=== PATIENT | male | born 1960 | race Caucasian/White ===

== ENCOUNTER 2018-12-11 13:22 | Emergency (ER) | payer OTHER, BC ==
[~2018-12-11] VITALS: Ht 177.8 cm; Wt 113.6 kg
[2018-12-11] MEDS ORDERED: ATOR1TAB21 (13:30)
[2018-12-11] MEDS ORDERED: D 101000 PO (13:30)
[2018-12-11] MEDS ORDERED: WARF-23 (13:30)
[2018-12-11] MEDS ORDERED: LISI-538 (13:30)
[2018-12-11 14:16] LABS: BASO % 0.3 % (0.0-1.0); EOS # 0.1 10^3/uL (0.0-0.50); HEMATOCRIT 40.9 % (42.0-52.0); HEMOGLOBIN 13.9 g/dl (13.5-17.5); LYMPH # 1.4 10^3/uL (1.5-4.5); MEAN CORPUSCULAR HEMOGLOBIN 32.1 pg (27.0-33.0); MEAN CORPUSCULAR VOLUME 94.5 fl (80.0-96.0); MONO # 0.6 10^3/uL (0.0-0.8); MONO % 9.2 % (0.0-5.0); NEUTROPHILS # 4.7 10^3/uL (1.8-7.7); NEUTROPHILS % 69.1 % (36.0-66.0); PLATELET COUNT, AUTOMATED 278 10^3/uL (150-450); RED BLOOD COUNT 4.33 10^6/uL (4.30-6.10); WHITE BLOOD COUNT 6.8 10^3/uL (4.0-10.0)
[2018-12-11 14:27] LABS: INR 2.62; PROTHROMBIN TIME 27.9 SECONDS (11.8-14.0)
[2018-12-11 14:28] LABS: PARTIAL THROMBOPLASTIN TIME 40.4 SECONDS (25.0-38.4)
[2018-12-11 14:40] LABS: ERYTHROCYTE SEDIMENTATION RATE 27 mm/hr (0-20)
[2018-12-11 14:41] LABS: BLOOD UREA NITROGEN 15 MG/DL (7-18); CALCIUM LEVEL 8.2 MG/DL (8.5-10.1); CARBON DIOXIDE LEVEL 27 MEQ/L (21-32); CHLORIDE LEVEL 109 MEQ/L (98-107); CREATININE FOR GFR 0.98 MG/DL (0.70-1.30); GLOMERULAR FILTRATION RATE > 60.0 (>56); GLUCOSE, FASTING 174 MG/DL (70-100); POTASSIUM SERUM 3.9 MEQ/L (3.5-5.1); SODIUM LEVEL 141 MEQ/L (136-145)
--- NOTE | 2018-12-11 15:21 | REP ---
Clinical: Left lower extremity swelling. Technique: Real time pennington scale and color Doppler evaluation using linear high frequency transducer. Findings: Nonocclusive thrombus is identified extending from the common femoral vein to the popliteal vein along with occlusive thrombus in the duplicated mid to distal femoral vein. These findings are nonspecific and the patient gives a history of current treatment for chronic thrombus. Impression: Elements of thrombus noted from the common femoral vein to the popliteal vein which are nonspecific in appearance and may represent chronic thrombus. The patient gives a history of current treatment for DVT. Electronically Signed by Dave Leiva MD 12/11/2018 03:13 P
[2018-12-11] MEDS ORDERED: KEFL500C17 PO (15:39)
[2018-12-11] MEDS ORDERED: CEPHALEXIN 500 MG CAP PO ONE (15:45)
[2018-12-11 15:48] VITALS: BP 148/80
--- NOTE | 2018-12-15 14:29 | ED PDOC ---
Post-Departure Follow-Up ani seymour faxed formal report of extrem us for fu Esmer Dillard MD Dec 15, 2018 14:29
== END 2018-12-11 15:50 | disposition home or self-care (01) ==
LOC: M ED 13:22
DX: I73.9 Peripheral vascular disease, unspecified (principal); L03.116 Cellulitis of left lower limb; I82.5Z2 Chronic embolism and thrombosis of unspecified deep veins of left distal lower extremity; I83.008 Varicose veins of unspecified lower extremity with ulcer other part of lower leg; I10 Essential (primary) hypertension; E78.5 Hyperlipidemia, unspecified; Z79.899 Other long term (current) drug therapy; Z79.01 Long term (current) use of anticoagulants

== ENCOUNTER → 2019-06-23 | Outpatient (POV) | payer OTHER, BC ==
[~2019-06-23] VITALS: Ht 177.8 cm; Wt 113.6 kg
[~2019-06-23] MED LIST: ATOR1TAB21; D 101000 PO; KEFL500C17 PO; LISI-538; WARF-23
[2019-06-23 14:15] VITALS: BP 158/74
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
== END ==
LOC: M IRPOV 14:02
PROVIDERS: ATTEND Radiology Diagnostic Radiology
DX: I87.392 Chronic venous hypertension (idiopathic) with other complications of left lower extremity (principal); Z86.718 Personal history of other venous thrombosis and embolism; Z79.01 Long term (current) use of anticoagulants

== ENCOUNTER 2019-07-01 11:55 | Observation (INO) | payer BC, MEDICARE, OTHER ==
[2019-07-01 12:57] LABS: HEMOGLOBIN 14.5 g/dl (13.5-17.5); MEAN CORPUSCULAR HEMOGLOBIN 31.4 pg (27.0-33.0); MEAN CORPUSCULAR VOLUME 95.2 fl (80.0-96.0); PLATELET COUNT, AUTOMATED 220 10^3/uL (150-450); RED BLOOD COUNT 4.62 10^6/uL (4.30-6.10)
[2019-07-01] MEDS ORDERED: fentaNYL 100 MCG/2 ML INJECTION (J3010) As Ordered ONE (12:58)
[2019-07-01] MEDS ORDERED: MIDAZOLAM INJ 2 MG/2 ML VIAL (J2250) As Ordered ONE (12:59)
[2019-07-01] MEDS ORDERED: LIDOCAINE 1% MDV 20ML VIAL As Ordered ONE (12:59)
[2019-07-01] MEDS ORDERED: ISOVUE-300 61% 50ML VIAL (Q9967) As Ordered ONE ×4 (12:59→15:34)
[2019-07-01] MEDS ORDERED: diphenhydrAMINE INJ 50MG/ML VIAL (J1200) As Ordered ONE (13:00)
[2019-07-01 13:08] LABS: INR 1.52; PROTHROMBIN TIME 18.1 SECONDS (11.8-14.0)
[2019-07-01 13:22] LABS: ALBUMIN 3.8 GM/DL (3.2-5.2); ALT/SGPT 41 U/L (12-78); BILIRUBIN,TOTAL 0.9 MG/DL (0.2-1.0); BLOOD UREA NITROGEN 17 MG/DL (7-18); CALCIUM LEVEL 8.9 MG/DL (8.5-10.1); CARBON DIOXIDE LEVEL 26 MEQ/L (21-32); CHLORIDE LEVEL 109 MEQ/L (98-107); CREATININE FOR GFR 0.88 MG/DL (0.70-1.30); GLOMERULAR FILTRATION RATE > 60.0 (>56); GLUCOSE, FASTING 105 MG/DL (70-100); POTASSIUM SERUM 4.7 MEQ/L (3.5-5.1); SODIUM LEVEL 141 MEQ/L (136-145); TOTAL PROTEIN 6.9 GM/DL (6.4-8.2)
[2019-07-01] MEDS ORDERED: PROMETHAZINE INJ 25 MG/ML VIAL (J2550) As Ordered ONE (14:56)
[2019-07-01] MEDS ORDERED: MEPERIDINE INJ 25 MG/ML VIAL (J2175) As Ordered ONE (15:09)
--- NOTE | 2019-07-01 17:25 | IRHP ---
[facility] IR Pre-Procedure H & P General Date of Service: Jul 01, 2019 Procedure: Same Day Surgery Interval History and Physical I have seen the patient and reviewed last H & P performed within 30 days. There is no significant interval change. History of Present Illness Chief Complaint The patient is a 58-year-old male admitted with a reason for visit of [place]ne[place]. PRE-PROCEDURE DIAGNOSIS: october HEART: normal rate. LUNGS: normal breathing at rest. ASA Classification ASA Classification: II-Mild systemic disease Mallampati Score: II NPO: Yes Problems with prior sedation: No Obstructive Sleep Apnea: No Plan moderate sedation Allergies Coded Allergies: No Known Allergies (Unverified , 12/11/18) Home Medications Miscellaneous Medications Atorvastatin Calcium (Atorvastatin Calcium), (Reported) Cholecalciferol (Vitamin D3) (Vitamin D3), 1,000 UNIT PO, (Reported) Lisinopril (Lisinopril), (Reported) Warfarin Sodium (Warfarin Sodium), (Reported) Discontinued Medications Cephalexin (Keflex), 500 MG PO QID Discontinued Reason: Pt states not taking VS, I&O, 24H, Fishbone Vital Signs/I&O Vital Signs Date Time Temp Pulse Resp B/P (MAP) Pulse Ox O2 Delivery O2 Flow Rate FiO2 07/01/19 17:16 59 18 96 Room Air 07/01/19 17:10 2 07/01/19 12:45 98.5 Laboratory Data 24H LABS Laboratory Tests 2 07/01/19 12:43: Nucleated Red Blood Cells % (auto) 0.0, Prothrombin Time 18.1H, Prothromb Time International Ratio 1.52, Anion Gap 6L, Glomerular Filtration Rate > 60.0, Calcium Level 8.9, Total Bilirubin 0.9, Aspartate Amino Transf (AST/SGOT) 23, Alanine Aminotransferase (ALT/SGPT) 41, Alkaline Phosphatase 55, Total Protein 6.9, Albumin 3.8, Albumin/Globulin Ratio 1.23 CBC/BMP Laboratory Tests 07/01/19 12:43 VANDANA IRVIN MD Jul 01, 2019 17:25
--- NOTE | 2019-07-01 17:27 | POST-OPPD ---
Postoperative Procedure Note Date Of Procedure: Jul 01, 2019 Time Of Procedure: 18:30 PREOPERATIVE DIAGNOSIS:chronic left iliac occlusion POSTOPERATIVE DIAGNOSIS: same FINDINGS: chronic occlusion left common iliac and external iliac PROCEDURE: let common iliac angioplasty and stent placement SURGEON: cipriano ANESTHESIA: mod sed ESTIMATED BLOOD LOSS: < 5 ml COMPLICATIONS: none POSTOPERATIVE CONDITION: stable VANDANA IRVIN MD Jul 01, 2019 17:27
[2019-07-01] MEDS: NS 1,000 ML IV SCH ×2 (18:23→22:32)
[2019-07-01 19:00] VITALS: BP 162/75
[2019-07-01 19:30] VITALS: BP 136/79
[2019-07-01 20:30] VITALS: BP 120/65
[2019-07-01 21:30] VITALS: BP 132/75
[2019-07-01 22:30] VITALS: BP 104/59
[2019-07-01] MEDS ORDERED: ACETAMINOPHEN 500 MG TAB PO PRN (23:15)
[2019-07-01 23:30] VITALS: BP 111/53
[2019-07-02 06:00] VITALS: BP 142/76
--- NOTE | 2019-07-03 10:26 | REP ---
IR pelvic venography. IR left common iliac venography. IR left common iliac vein recanalization. IR left external iliac vein recanalization. IR left common iliac vein stenting. IR left common iliac vein angioplasty. IR moderate sedation. IR ultrasound guided right internal jugular vein access. Clinical information: Multiple left lower extremity deep vein thrombosis. Left lower extremity venous hypertension with limb swelling. Pain. Physician: Dr. Bustos. Procedure: The patient was advised of the benefits, risks and alternatives of the procedure and informed consent was obtained. The time-out was performed with verification of the patient's name MRN, site of procedure and type of procedure to be performed. The patient was positioned in the supine position on the angiographic table. The site was prepped and draped in the usual sterile fashion. Moderate sedation was performed by the physician including the presence of an independent trained observer who assisted in monitoring the patient's level of consciousness and physiologic status. Following the administration of fentanyl and Versed , the physician spent 240 minutes of continuous face to face time with the patient. A transportation broker radiograph reveals no gross abnormality. Ultrasound of the right neck demonstrates patent and compressible right internal jugular vein. A micropuncture needle was used under ultrasound guidance to access the right internal jugular vein. An 018 wire was advanced into the inferior vena cava and the micropuncture needle was exchanged for a micro sheath. An Amplatz wire was advanced through the micro sheath into the inferior vena cava. The micro sheath was exchanged for a 6-Estonian vascular sheath. A 5-Estonian MPB catheter was used in conjunction with a wire to catheterize the left common iliac vein. A venogram was performed and this demonstrates no main left common iliac vein but cavernous transformation in the region and filling of cross pelvic collaterals to drain via the right common iliac vein. A Glidewire was advanced through the MPB catheter and under fluoroscopy guidance, was used to recanalize through the collateral. The glide wire was exchanged for a Roadrunner and further manipulation was performed to try to recanalized the collateral out to the external iliac vein. The Roadrunner wire was exchanged for a fathom wire and used under fluoroscopy guidance to recanalize the collateral through to the external iliac vein. A [place] catheter was advanced over the wire under fluoroscopy guidance into the left femoral vein. A venogram was performed through the catheter and this demonstrates access into patent left femoral vein. There is complete occlusion of the left common iliac vein and filling of cross pelvic collaterals from the femoral vein to drain via the right common iliac vein. The catheter was advanced further over the wire and used to catheterize the peripheral femoral vein. A venogram was performed and this demonstrates patent left femoral vein. The catheter was removed over the wire. A 6 x 200 mm angioplasty balloon was advanced over the wire under fluoroscopy guidance and positioned in the left common iliac/ external iliac vein. This was used to angioplasty the left common iliac vein. The balloon was deflated and catheter removed over the wire. The diagnostic catheter was re-advanced over the wire under fluoroscopy guidance into the left external iliac vein. A repeat venogram was performed and this demonstrates persistent occlusion of the left common iliac vein post angioplasty. Persistent filling of cross pelvic collaterals. The right IJ sheath was exchanged over the wire for a 10-Estonian vascular sheath. A 14 x 60 mm wall stent was then advanced over the wire under fluoroscopy guidance into the left common iliac vein. The stent was deployed under fluoroscopy guidance. Upon removing the deployment device, the wire came out of the left common iliac vein. The catheter was re-advanced over the wire in an attempt to recatheterize the left common iliac vein. After several attempts, cognizant of procedure time and radiation exposure, it was felt best to stop and bring the patient back a different day. Catheter, wire and sheath were removed, pressure held and hemostasis achieved. A sterile dressing was applied to the site. The patient tolerated the procedure well and was returned to PRU in stable condition. EBL: Less than 5 ml. Complications: None. Conclusion: 1. Left iliac venography demonstrates complete occlusion of the left common iliac vein and numerous collaterals in the area along with cross pelvic collaterals draining via the right common iliac vein. 2. Successful recanalization of left common iliac vein out to the left femoral vein. 3. Successful angioplasty of the left common iliac and external iliac vein. 4. Successful stent placement in the left common iliac vein. 5. Patient to follow up in IR clinic in 2 weeks for further discussions regarding stent extension. Thank you this referral. Electronically Signed by Melissa Bustos MD 07/03/2019 10:24 A
== END 2019-07-02 11:23 | disposition home or self-care (01) ==
LOC: M IRPRO 11:55 → M ED INP 21:54 → M MSPAV 22:28
PROVIDERS: ADMIT Radiology Diagnostic Radiology; ATTEND Radiology Diagnostic Radiology
DX: E34.0 Carcinoid syndrome (principal); I82.402 Acute embolism and thrombosis of unspecified deep veins of left lower extremity; I87.392 Chronic venous hypertension (idiopathic) with other complications of left lower extremity; I82.422 Acute embolism and thrombosis of left iliac vein

== ENCOUNTER → 2019-07-14 | Outpatient (POV) | payer OTHER, BC ==
[~2019-07-14] VITALS: Ht 177.8 cm; Wt 113.6 kg
[2019-07-14 15:20] VITALS: BP 127/61
--- NOTE | 2019-07-15 08:15 | IRPN ---
[facility] IR Progress Note IR Progress Note DATE: Jul 14, 2019 FOLLOW-UP: Patient with recurrent left lower extremity deep vein thrombosis, progressive left lower extremity swelling and advanced venous hypertension underwent left iliac venogram. This demonstrated left common iliac vein occlusion and extensive left iliac collateralization. Status post successful recanalization, a stent was placed in the left common iliac vein. However, patient will require stent extension all the way past the joint to the left femoral vein. We discussed the risks and benefits of stenting across the joint line including stent fracture. We discussed intentions would be to improve venous drainage from the left leg and reduce left leg swelling and venous hypertension. However, there is the possibility the stent can occlude in the future and require angioplasty/ revision. ON EXAMINATION: Right neck access site appears well healed. No issues at access site. IMPRESSION: Patient would like to proceed with stent extension. We have scheduled the patient for this procedure. Thank you for this referral CC Dr. Khan Allergies Coded Allergies: No Known Allergies (Unverified , 12/11/18) VS,Fishbone, I+O VS, Fishbone, I+O Vital Signs Date Time Temp Pulse Resp B/P (MAP) Pulse Ox O2 Delivery O2 Flow Rate FiO2 07/14/19 15:20 98.3 64 18 127/61 (83) 95 Room Air VANADNA IRVIN MD Jul 15, 2019 08:15
== END ==
LOC: M IRPOV 15:06
PROVIDERS: ATTEND Radiology Diagnostic Radiology
DX: I82.502 Chronic embolism and thrombosis of unspecified deep veins of left lower extremity (principal); I87.302 Chronic venous hypertension (idiopathic) without complications of left lower extremity; R60.0 Localized edema

== ENCOUNTER → 2019-08-13 | Outpatient (CLI) | payer OTHER, BC ==
[~2019-08-13] MED LIST changes: +HEPARIN 1,000 UNITS/ML 10ML VIAL (FOR RADIOLOGY& DIALYSIS ONLY)(J1644-10) As Ordered ONE; +ISOVUE-300 61% 50ML VIAL (Q9967) As Ordered ONE; +LIDOCAINE 1% MDV 20ML VIAL As Ordered ONE; +MIDAZOLAM INJ 2 MG/2 ML VIAL (J2250) As Ordered ONE; +diphenhydrAMINE INJ 50MG/ML VIAL (J1200) As Ordered ONE; +fentaNYL 100 MCG/2 ML INJECTION (J3010) As Ordered ONE
[2019-08-13 08:41] LABS: HEMATOCRIT 40.6 % (42.0-52.0); HEMOGLOBIN 13.4 g/dl (13.5-17.5); MEAN CORPUSCULAR HEMOGLOBIN 31.5 pg (27.0-33.0); MEAN CORPUSCULAR VOLUME 95.3 fl (80.0-96.0); PLATELET COUNT, AUTOMATED 201 10^3/uL (150-450); RED BLOOD COUNT 4.26 10^6/uL (4.30-6.10); WHITE BLOOD COUNT 4.9 10^3/uL (4.0-10.0)
[2019-08-13 08:50] LABS: INR 1.7; PROTHROMBIN TIME 19.8 SECONDS (11.8-14.0)
[2019-08-13 09:04] LABS: BLOOD UREA NITROGEN 22 MG/DL (7-18); CALCIUM LEVEL 9.1 MG/DL (8.5-10.1); CARBON DIOXIDE LEVEL 26 MEQ/L (21-32); CHLORIDE LEVEL 111 MEQ/L (98-107); CREATININE FOR GFR 0.81 MG/DL (0.70-1.30); GLOMERULAR FILTRATION RATE > 60.0 (>56); GLUCOSE, FASTING 116 MG/DL (70-100); POTASSIUM SERUM 4.3 MEQ/L (3.5-5.1); SODIUM LEVEL 143 MEQ/L (136-145)
--- NOTE | 2019-08-13 09:09 | IRHP ---
[facility] IR Pre-Procedure H & P General Date of Service: Aug 13, 2019 Procedure: Same Day Surgery Interval History and Physical I have seen the patient and reviewed last H & P performed within 30 days. There is no significant interval change. History of Present Illness Chief Complaint The patient is a 58-year-old male admitted with a reason for visit of Iliac Vein Occlusion. PRE-PROCEDURE DIAGNOSIS: iliac vein occlusion HEART: normal rate. LUNGS: normal breathing at rest. ASA Classification ASA Classification: II-Mild systemic disease Mallampati Score: II NPO: Yes Problems with prior sedation: No Obstructive Sleep Apnea: No Plan moderate sedation Allergies Coded Allergies: No Known Allergies (Unverified , 12/11/18) Home Medications Miscellaneous Medications Atorvastatin Calcium (Atorvastatin Calcium), (Reported) Cholecalciferol (Vitamin D3) (Vitamin D3), 1,000 UNIT PO, (Reported) Lisinopril (Lisinopril), (Reported) Warfarin Sodium (Warfarin Sodium), (Reported) VS, I&O, 24H, Fishbone Vital Signs/I&O Vital Signs Date Time Temp Pulse Resp B/P (MAP) Pulse Ox O2 Delivery O2 Flow Rate FiO2 08/13/19 07:58 98.2 50 18 96 Room Air Laboratory Data 24H LABS Laboratory Tests 2 08/13/19 07:40: Nucleated Red Blood Cells % (auto) 0.0, Prothrombin Time 19.8H, Prothromb Time International Ratio 1.70, Anion Gap 6L, Glomerular Filtration Rate > 60.0, Calcium Level 9.1 CBC/BMP Laboratory Tests 08/13/19 07:40 VANDANA IRVIN MD Aug 13, 2019 09:09
--- NOTE | 2019-08-13 14:26 | POST-OPPD ---
Postoperative Procedure Note Date Of Procedure: Aug 13, 2019 Time Of Procedure: 14:25 PREOPERATIVE DIAGNOSIS:chronic venous occlusion POSTOPERATIVE DIAGNOSIS: same FINDINGS: same PROCEDURE: venogram. unable to catheterize to extend stents SURGEON: cipriano ANESTHESIA: mod sed ESTIMATED BLOOD LOSS: < 5 ml COMPLICATIONS: none POSTOPERATIVE CONDITION: none VANDANA IRVIN MD Aug 13, 2019 14:26
[2019-08-13 14:30] VITALS: BP 170/88
--- NOTE | 2019-08-14 13:44 | REP ---
IR left lower extremity venography. IR left common femoral venography IR ultrasound guided left popliteal vein access. IR ultrasound guided right internal jugular vein access. IR ultrasound guided left common femoral vein access. IR moderate sedation. Clinical information: Left lower extremity swelling. Chronic venous hypertension. Chronic left iliac occlusion. Physician: Dr. Bustos. Procedure: The patient was advised of the benefits, risks and alternatives of the procedure and informed consent was obtained. The time-out was performed with verification of the patient's name MRN, site of procedure and type of procedure to be performed. The patient was positioned in the prone position on the angiographic table. The site was prepped and draped in the usual sterile fashion. Moderate sedation was performed by the physician including the presence of an independent trained observer who assisted in monitoring the patient's level of consciousness and physiologic status. Following the administration of fentanyl and Versed , the physician spent 120 minutes of continuous face to face time with the patient. A bad work gatherer radiograph reveals left common iliac stent. Ultrasound of the popliteal fossa demonstrates partially noncompressible left popliteal vein. The left popliteal vein was accessed under ultrasound guidance using a micropuncture kit. A wire was advanced into the vein. The needle was exchanged for a micro sheath. A venogram was then performed and this demonstrates intricate collaterals within the lower thigh. Venography further up the leg and pelvis was performed and this demonstrates collaterals draining into one main vein which is irregular and string -like and drains into the left external iliac vein. There is filling of cross pelvic collaterals and drainage via the right common iliac vein. There is no flow through the common iliac stent. There is abundance of collaterals around the external iliac vein. Access was removed, pressure held and hemostasis achieved. A sterile dressing was applied to the site. Ultrasound of the right neck demonstrates patent and compressible right internal jugular vein. A micropuncture needle was used under ultrasound guidance to access the right internal jugular vein. An 018 wire was advanced into the inferior vena cava and the micropuncture needle was exchanged for a micro sheath. An Amplatz wire was advanced under fluoroscopy guidance into the inferior vena cava and the micro sheath was exchanged for a 6-[place] sheath. An MPB catheter in conjunction with a Glidewire was used under fluoroscopy guidance to try to catheterize the left iliac stent. Failing this, the catheter was exchanged for a Cobra catheter. This was used under fluoroscopy guidance to try to engage the stent. This was removed over the wire and exchanged for Juan catheter. The Roscoe catheter in conjunction with the wire was used to try to cannulate the stent. Failing this , catheter wire and sheath were removed, pressure held and hemostasis achieved. Ultrasound left common femoral vein demonstrates compressible patent left common femoral vein. The left common femoral vein was accessed under ultrasound guidance with a micropuncture needle. A wire was advanced into the external iliac vein. The needle was removed over the wire and exchanged for a micro sheath. An 035 wire was advanced into the external iliac vein and the sheath was exchanged for a 6-[place] vascular sheath. A Glidewire in conjunction with a glide cath was advanced through the sheath under fluoroscopy guidance and used to try to recannulate the external iliac vein. The catheter was advanced over the wire. A follow-up venogram was performed and this demonstrates occlusion of the left common iliac vein. Abundance of cross pelvic collaterals filling through the internal iliac veins to the contralateral common iliac vein for central drainage. Further attempts were made to try to recanalize the common iliac vein without success. Left groin access was removed, pressure held and hemostasis achieved. A sterile dressing was applied to the site. The patient tolerated the procedure well and was returned to PRU in stable condition. EBL: Less than 5 ml. Complications: None. 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 Extremely complex and difficult case with multiple attempts, I discussed with the patient for possible referral to an [facility] special[facility] IVUS guided sharp recanalization. He is agreeable and we will refer him on. Thank you this referral. Cc Dr. Khan Electronically Signed by Melissa Bustos MD 08/14/2019 01:42 P
== END ==
LOC: M IRPRO 07:06
PROVIDERS: ATTEND Radiology Diagnostic Radiology
DX: I87.301 Chronic venous hypertension (idiopathic) without complications of right lower extremity (principal); I70.92 Chronic total occlusion of artery of the extremities; R60.0 Localized edema
CPT/HCPCS: 36005; 36010; 75820; 80048; 85027; 85610; 99152; 99153; C1729; C1769; C1887; C1894; J1644; J2250; J3010; Q9967

== ENCOUNTER → 2019-09-02 | Outpatient (CLI) | payer OTHER ==
[~2019-09-02] MED LIST changes: -HEPARIN 1,000 UNITS/ML 10ML VIAL (FOR RADIOLOGY& DIALYSIS ONLY)(J1644-10) As Ordered ONE; -ISOVUE-300 61% 50ML VIAL (Q9967) As Ordered ONE; +ISOVUE-370 76% 100ML VIAL (Q9967) As Ordered ONE; -LIDOCAINE 1% MDV 20ML VIAL As Ordered ONE; -MIDAZOLAM INJ 2 MG/2 ML VIAL (J2250) As Ordered ONE; -diphenhydrAMINE INJ 50MG/ML VIAL (J1200) As Ordered ONE; -fentaNYL 100 MCG/2 ML INJECTION (J3010) As Ordered ONE
--- NOTE | 2019-09-03 09:38 | REP ---
CT ANGIOGRAPHY/CT VENOGRAPHY AORTA AND LOWER EXTREMITY CIRCULATION WITH IV CONTRAST: HISTORY: Chronic venous occlusion. CT CONTRAST DOSE: 100 mL of intravenous Isovue three CT. TECHNIQUE: Helical scanning is acquired in the arterial phase and 3 mm axial images are reformatted. Coronal and sagittal MPR images and MIP images are generated and reviewed. 3D surface rendered images are generated and reviewed. Following this, the abdomen pelvis and lower extremities were re-acquired in delayed phase 30 seconds after the arterial phase. CT ANGIOGRAPHIC FINDINGS: There are two cortical cysts left kidney noted incidentally, the largest of which measures 2.2 cm. The suprarenal and infrarenal abdominal aorta are unremarkable. Celiac, superior mesenteric, and inferior mesenteric artery origins are unremarkable. Singular nonstenotic renal arteries are seen. There is mild calcific plaquing at the origin of the right renal artery. The common iliac arteries are widely patent. External iliac arteries are unremarkable. The common femoral, superficial femoral, and profunda femoral arteries are bilaterally intact. Popliteal arteries are of good caliber. Calf trifurcation vessels are unremarkable bilaterally. Three-vessel calf runoff is seen to just above the ankle and the anterior and posterior tibial arteries are patent across the ankle bilaterally. On the venous side, the acquisition delay shows a venous opacification in the left calf in multiple superficial varicosities. The deep veins are only opacified in the distal calf. There are focal linear intraluminal calcifications in that portion of the proximal superficial femoral vein consistent with chronic DVT. There is diffuse enlargement and edema of the left lower extremity. Enhancing varicosities are seen in the proximal thigh on the left. The common femoral vein on the left contains some linear calcific material as well. This extends into the left external iliac vein consistent with chronic DVT. There is a left common iliac vein stent in place but I cannot attest to its patency. The inferior vena cava in the abdomen is unremarkable. The right common iliac vein, right external iliac vein and more distal thigh and calf veins are unremarkable as seen although they are not opacified. There is no edema. No abnormal varicosities are seen in the right leg. IMPRESSION: No CT angiographic arterial stenosis or occlusion seen. There is evidence of chronic deep venous thrombosis and occlusion of the left lower extremity veins probably including the left common iliac vein where there is a stent in place. Superficial collaterals are seen throughout the left lower extremity which is diffusely swollen. Venous collaterals are noted in the suprapubic region crossing the midline and into the anterior abdominal wall. There is calcific thrombus in the deep venous system on the left as described above at several locations. Electronically Signed by Devin Sahu MD 09/03/2019 12:07 P
== END ==
LOC: M RAD 15:57
PROVIDERS: ATTEND Radiology Diagnostic Radiology
DX: I87.1 Compression of vein (principal)
CPT/HCPCS: 75635; Q9967

== ENCOUNTER → 2019-10-13 | Outpatient (POV) | payer OTHER, BC ==
[~2019-10-13] MED LIST changes: -ISOVUE-370 76% 100ML VIAL (Q9967) As Ordered ONE
--- NOTE | 2019-10-14 15:05 | IRPN ---
[facility] IR Progress Note IR Progress Note DATE: Oct 13, 2019 FOLLOW-UP: patient with chronic complex left iliac vein occlusion and 20 year history of left leg swelling, status post partial recanalization. Patient was referred to [facility] for further IVUS guided sharp recanalization and intervention. Patient hasn't heard from them yet due to [place] pandemic however the referral is through. I advised the patient he will hear from [facility]. I will follow up with the patient when his visit is confirmed. Allergies Coded Allergies: No Known Allergies (Unverified , 12/11/18) VANDANA IRVIN MD Oct 14, 2019 15:05
== END ==
LOC: M TMIRPOV 14:48
PROVIDERS: ATTEND Radiology Diagnostic Radiology
DX: I82.522 Chronic embolism and thrombosis of left iliac vein (principal)

== ENCOUNTER → 2020-01-20 | Outpatient (CLI) | payer BC, OTHER ==
[2020-03-13 12:58] LABS: ALBUMIN 3.8 GM/DL (3.2-5.2); ALT/SGPT 53 U/L (12-78); BILIRUBIN,TOTAL 0.6 MG/DL (0.2-1.0); BLOOD UREA NITROGEN 17 MG/DL (7-18); CALCIUM LEVEL 8.9 MG/DL (8.5-10.1); CARBON DIOXIDE LEVEL 31 MEQ/L (21-32); CHLORIDE LEVEL 109 MEQ/L (98-107); CREATININE FOR GFR 1.21 MG/DL (0.70-1.30); GLOMERULAR FILTRATION RATE > 60.0 (>56); GLUCOSE, FASTING 94 MG/DL (70-100); POTASSIUM SERUM 4.8 MEQ/L (3.5-5.1); SODIUM LEVEL 143 MEQ/L (136-145); TOTAL PROTEIN 7.1 GM/DL (6.4-8.2)
[2020-03-13 15:10] LABS: BASO % 0.4 % (0.0-1.0); EOS # 0.1 10^3/uL (0.0-0.5); EOS % 1.1 % (0.0-3.0); HEMATOCRIT 42.7 % (42.0-52.0); HEMOGLOBIN 14.4 g/dl (13.5-17.5); LYMPH # 1.4 10^3/uL (1.5-5.0); LYMPH % 24.5 % (24.0-44.0); MEAN CORPUSCULAR HEMOGLOBIN 31.7 pg (27.0-33.0); MEAN CORPUSCULAR HGB CONC 33.7 g/dl (32.0-36.5); MEAN CORPUSCULAR VOLUME 94.1 fl (80.0-96.0); MONO # 0.6 10^3/uL (0.0-0.8); MONO % 11.3 % (0.0-5.0); NEUTROPHILS # 3.6 10^3/uL (1.5-8.5); NEUTROPHILS % 62.3 % (36.0-66.0); PLATELET COUNT, AUTOMATED 229 10^3/uL (150-450); RED BLOOD COUNT 4.54 10^6/uL (4.30-6.10); WHITE BLOOD COUNT 5.7 10^3/uL (4.0-10.0)
== END ==
LOC: M LAB 15:13
PROVIDERS: ATTEND Registered Nurse Oncology
DX: Z53.9 Procedure and treatment not carried out, unspecified reason (principal); I87.009 Postthrombotic syndrome without complications of unspecified extremity

== ENCOUNTER → 2020-01-28 | Outpatient (CLI) | payer BC, OTHER ==
[2020-03-03 08:04] LABS: BASO % 0.4 % (0.0-1.0); EOS # 0.1 10^3/uL (0.0-0.5); EOS % 1.1 % (0.0-3.0); HEMOGLOBIN 13.6 g/dl (13.5-17.5); LYMPH # 1.3 10^3/uL (1.5-5.0); LYMPH % 24.5 % (24.0-44.0); MEAN CORPUSCULAR HEMOGLOBIN 31.8 pg (27.0-33.0); MEAN CORPUSCULAR VOLUME 93.5 fl (80.0-96.0); MONO # 0.5 10^3/uL (0.0-0.8); MONO % 9.2 % (0.0-5.0); NEUTROPHILS # 3.4 10^3/uL (1.5-8.5); NEUTROPHILS % 64.2 % (36.0-66.0); PLATELET COUNT, AUTOMATED 220 10^3/uL (150-450); RED BLOOD COUNT 4.28 10^6/uL (4.30-6.10); WHITE BLOOD COUNT 5.2 10^3/uL (4.0-10.0)
[2020-03-16 09:48] LABS: ALBUMIN 3.6 GM/DL (3.2-5.2); ALT/SGPT 41 U/L (12-78); BILIRUBIN,TOTAL 0.5 MG/DL (0.2-1.0); BLOOD UREA NITROGEN 15 MG/DL (7-18); CALCIUM LEVEL 8.8 MG/DL (8.5-10.1); CARBON DIOXIDE LEVEL 26 MEQ/L (21-32); CHLORIDE LEVEL 113 MEQ/L (98-107); CREATININE FOR GFR 0.88 MG/DL (0.70-1.30); GLOMERULAR FILTRATION RATE > 60.0 (>56); GLUCOSE, FASTING 98 MG/DL (70-100); POTASSIUM SERUM 4.1 MEQ/L (3.5-5.1); SODIUM LEVEL 144 MEQ/L (136-145); TOTAL PROTEIN 6.7 GM/DL (6.4-8.2)
== END ==
LOC: M LAB 15:00
PROVIDERS: ATTEND Registered Nurse Oncology
DX: I87.009 Postthrombotic syndrome without complications of unspecified extremity (principal)
CPT/HCPCS: 36415; 80053; 85025; U0002

== ENCOUNTER → 2020-05-17 | Outpatient (POV) | payer OTHER, BC ==
--- NOTE | 2020-05-20 09:12 | IRPN ---
[facility] IR Progress Note IR Progress Note DATE: May 17, 2020 Patient agreed to this telephone follow-up. I spent 5 minutes in conversation with the patient. FOLLOW-UP: Patient with decades long chronic left iliac occlusion and left lower extremity venous hypertension, status post recent IVUS guided left iliac reconst ruction at [facility]. Patient states his left leg feels much better since the procedure. He says that the chronic skin redness has actually gone away now. He is able to exercise without pain and he is using a treadmill every day. He denies lower back pain, dizziness or syncope. On the last one month post procedure CAT scan follow-up done at [facility], I was informed there was some pericaval hemorrhage seen. However, patient denies any pain or symptoms since that time. ON EXAMINATION: No video on patient side. IMPRESSION: Patient doing well status post IVUS guided left iliac reconstruction for chronic iliac occlusion and left lower extremity venous hypertension. Patient continues to follow-up with [facility] and they will order his follow-up CAT scan along with follow-up clinic visit. No further follow-up scheduled with me unless initiated by patient and/or referring provider. Allergies Coded Allergies: No Known Allergies (Unverified , 12/11/18) VANDANA IRVIN MD May 20, 2020 09:12
== END ==
LOC: M TMIRPOV 15:25
PROVIDERS: ATTEND Radiology Diagnostic Radiology
DX: Z48.812 Encounter for surgical aftercare following surgery on the circulatory system (principal)

== ENCOUNTER → 2020-10-27 | Outpatient (CLI) | payer OTHER ==
[~2020-10-27] MED LIST changes: -LISI-538; +LISI20TA33
== END ==
LOC: M LABSMTC 14:01
DX: Z20.828 Contact with and (suspected) exposure to other viral communicable diseases (principal); Z11.59 Encounter for screening for other viral diseases

== ENCOUNTER → 2020-12-13 | Outpatient (CLI) | payer OTHER, BC ==
--- NOTE | 2020-12-13 17:07 | REP ---
INDICATION: VENOUS INSUFFICIENCY LEFT LEG COMPARISON: 12/11/2018 TECHNIQUE: Hicks scale and color Doppler evaluation using linear high frequency transducer. FINDINGS: Ultrasound examination of the left lower extremity deep venous structures from the common femoral vein through the popliteal vein demonstrates normal compressibility flow and wave patterns in response to respiration and augmentation. Calf veins could not be assessed due to body habitus and technical factors. There is no evidence for deep venous thrombosis. Contralateral CFV is patent and normal. Greater saphenous vein is thrombosed originating 1.5 cm from the common femoral vein consistent with prior laser therapy. IMPRESSION: No evidence for deep venous thrombosis. <Electronically signed by Dave Leiva > 12/13/20 [id number]
== END ==
LOC: M RAD 16:11
PROVIDERS: ATTEND Radiology Diagnostic Radiology
DX: I87.2 Venous insufficiency (chronic) (peripheral) (principal); M79.605 Pain in left leg

== ENCOUNTER → 2021-11-07 | Outpatient (POV) | payer OTHER ==
[~2021-11-07] VITALS: Ht 177.8 cm; Wt 122.7 kg
[2021-11-07 15:15] VITALS: BP 130/74
== END ==
LOC: M IRPOV 15:10
PROVIDERS: ATTEND Radiology Diagnostic Radiology
DX: I87.302 Chronic venous hypertension (idiopathic) without complications of left lower extremity (principal); I70.202 Unspecified atherosclerosis of native arteries of extremities, left leg